=== PATIENT | male | born 1965 | race Hispanic/Latino ===

== ENCOUNTER 2020-07-17 18:34 | Outpatient (CLI) | payer OTHER ==
[2020-07-17 19:38] LABS: POTASSIUM 4.5 mmol/L (3.6-5.2)
[2020-07-17 20:11] LABS: PLATELET COUNT 261 K/uL (142-355)
== END 2020-07-17 22:04 | disposition home or self-care (01) ==
LOC: LAB 18:34
PROVIDERS: ATTEND Nurse Practitioner Family
DX: Z00.00 Encounter for general adult medical examination without abnormal findings (principal); Z79.899 Other long term (current) drug therapy; I10 Essential (primary) hypertension; E78.5 Hyperlipidemia, unspecified; K21.9 Gastro-esophageal reflux disease without esophagitis; R53.81 Other malaise
CPT/HCPCS: 80053; 80061; 82306; 82607; 83036; 84439; 84443; 85027; 86140; G0103